=== PATIENT | female | born 1945 | race Caucasian/White ===

== ENCOUNTER 2019-06-27 13:23 | Inpatient (IN) | payer MEDICARE, OTHER ==
[~2019-06-27] VITALS: Ht 165.1 cm; Wt 91.0 kg
[2019-06-27] MEDS ORDERED: heparin 25,000 UNIT/250ml bag 250 ML IV SCH (13:38)
[2019-06-27] MEDS ORDERED: heparin 10,000 units/1 ML INJ IV PRN ×2 (13:40→15:35)
[2019-06-27 14:11] LABS: BASOPHILS # (AUTO) 0.1 X10'3 (0-0.2); BASOPHILS % (AUTO) 1.1 % (0-1); EOSINOPHILS # (AUTO) 0.2 X10'3 (0-0.9); EOSINOPHILS % (AUTO) 2.2 % (0-6); HEMATOCRIT 41.4 % (35.0-45.0); HEMOGLOBIN 14.2 g/dl (12.0-16.0); LYMPHOCYTES # (AUTO) 2.9 X10'3 (1.1-4.8); LYMPHOCYTES % (AUTO) 37.9 % (21-51); MEAN CORPUSCULAR HEMOGLOBIN 32.6 PG (27.0-31.0); MEAN CORPUSCULAR HGB CONC 34.2 g/dL (33.0-36.5); MEAN CORPUSCULAR VOLUME 95.2 FL (78-98); MEAN PLATELET VOLUME 7.7 FL (7.4-10.4); MONOCYTES # (AUTO) 0.7 X10'3 (0-0.9); MONOCYTES % (AUTO) 8.7 % (2-12); NEUTROPHILS # (AUTO) 3.8 X10'3 (1.8-7.7); NEUTROPHILS % (AUTO) 50.1 % (42-75); PLATELET COUNT 294 X10'3 (140-440); RED BLOOD COUNT 4.34 X10'6 (4.20-5.60); WHITE BLOOD COUNT 7.7 X10'3 (4.5-11.0)
[2019-06-27 14:21] LABS: ALANINE AMINOTRANSFERASE 40 U/L (12-78); ALBUMIN 3.7 G/DL (3.4-5.0); ALBUMIN/GLOBULIN RATIO 0.9 (1.1-1.5); ALKALINE PHOSPHATASE 97 IU/L (46-116); ANION GAP 8 (8-16); ASPARTATE AMINO TRANSFERASE 30 U/L (10-37); BILIRUBIN,TOTAL 0.5 MG/DL (0.1-1.0); BLOOD UREA NITROGEN 27 MG/DL (7-18); BUN/CREATININE RATIO 32.5 (6.6-38.0); CALCIUM 10.8 MG/DL (8.5-10.1); CHLORIDE 104 MMOL/L (99-107); CREATININE 0.83 MG/DL (0.40-0.90); GLUCOSE 91 MG/DL (70-104); POTASSIUM 4.5 MMOL/L (3.5-5.1); SODIUM 138 MMOL/L (135-145); TOTAL CARBON DIOXIDE 26.4 MMOL/L (24-32); eGFR 67 ML/MIN
[2019-06-27 14:29] LABS: MAGNESIUM 2.2 MG/DL (1.5-2.4)
[2019-06-27] MEDS ORDERED: DULO20CA50 PO (15:00)
[2019-06-27] MEDS ORDERED: MONT10TA21 PO (15:00)
[2019-06-27] MEDS ORDERED: LEVO75TA PO (15:00)
[2019-06-27] MEDS ORDERED: magnesium 2GM in 50ml NS 50 ML IV PRN (15:35)
[2019-06-27] MEDS ORDERED: potassium Cl 20 mEq SR tablet PO PRN ×2 (15:35)
[2019-06-27] MEDS ORDERED: mag hydrox/Alum hydrox/simeth 30ml oral suspension PO PRN (15:35)
[2019-06-27] MEDS ORDERED: magnesium 4gm in 100ml NS 100 ML IV PRN (15:35)
[2019-06-27] MEDS ORDERED: acetaminophen 325mg tablet PO PRN ×2 (15:35)
[2019-06-27] MEDS ORDERED: magnesium Cl slow-release 64mg tablet PO PRN (15:35)
[2019-06-27] MEDS ORDERED: potassium CL 10mEq/100ml bag 100 ML IV PRN ×2 (15:35)
[2019-06-27] MEDS ORDERED: morphine 2 MG/ML inj. syringe IV PRN (15:35)
[2019-06-27] MEDS ORDERED: ondansetron/PF 4mg/2ml inj IV PRN (15:35)
[2019-06-27] MEDS ORDERED: magnesium hydroxide 30ml (MOM) UD suspension PO PRN (15:35)
[2019-06-27] MEDS ORDERED: HYDROcodone/acetaminophen 5mg/325mg tablet PO PRN (15:35)
[2019-06-27] MEDS ORDERED: pamidronate disodium inj 60 MG in normal saline 500ml IV soln 500 ML IV ONE (16:05)
--- NOTE | 2019-06-27 16:29 | NUR ---
New admit to 3015B received report from TEDDY Baugh in ER. Pt was brought up on [facility]ts and transferred with sba to bed. She is A&O NAD. Heparin infusing @ 1700units/hr . She denies pain. IDART nurse and Dietary were notified of her arrival.
--- NOTE | 2019-06-27 18:15 | NUR ---
Problems reprioritized. Patient report given, questions answered & plan of care reviewed with TEDDY Syed.
[2019-06-27 19:00] VITALS: BP 140/76
[2019-06-27] MEDS: normal saline 1000ml 1,000 ML IV SCH (20:13)
[2019-06-27] MEDS ORDERED: temazepam 15mg capsule PO PRN (21:00)
[2019-06-27 21:55] LABS: PARTIAL THROMBOPLASTIN TIME 61 SECONDS (22-32)
[2019-06-27 23:00] VITALS: BP 126/70
[2019-06-28] MEDS: heparin 25,000 UNIT/250ml bag 250 ML IV SCH ×3 (02:54→17:08)
[2019-06-28 03:00] VITALS: BP 125/76
[2019-06-28 03:27] LABS: ALBUMIN 3.4 G/DL (3.4-5.0); ANION GAP 11 (8-16); BLOOD UREA NITROGEN 23 MG/DL (7-18); BUN/CREATININE RATIO 29.9 (6.6-38.0); CHLORIDE 106 MMOL/L (99-107); CREATININE 0.77 MG/DL (0.40-0.90); GLUCOSE 97 MG/DL (70-104); MAGNESIUM 2.3 MG/DL (1.5-2.4); POTASSIUM 3.9 MMOL/L (3.5-5.1); SODIUM 139 MMOL/L (135-145); TOTAL CARBON DIOXIDE 22.4 MMOL/L (24-32); eGFR 73 ML/MIN
[2019-06-28 04:06] LABS: BASOPHILS # (AUTO) 0.1 X10'3 (0-0.2); BASOPHILS % (AUTO) 1.8 % (0-1); EOSINOPHILS # (AUTO) 0.2 X10'3 (0-0.9); EOSINOPHILS % (AUTO) 3.7 % (0-6); HEMATOCRIT 40.3 % (35.0-45.0); HEMOGLOBIN 13.8 g/dl (12.0-16.0); LYMPHOCYTES # (AUTO) 2.4 X10'3 (1.1-4.8); LYMPHOCYTES % (AUTO) 39.4 % (21-51); MEAN CORPUSCULAR HEMOGLOBIN 32.9 PG (27.0-31.0); MEAN CORPUSCULAR HGB CONC 34.2 g/dL (33.0-36.5); MEAN CORPUSCULAR VOLUME 96.2 FL (78-98); MEAN PLATELET VOLUME 8.3 FL (7.4-10.4); MONOCYTES # (AUTO) 0.7 X10'3 (0-0.9); MONOCYTES % (AUTO) 10.7 % (2-12); NEUTROPHILS # (AUTO) 2.7 X10'3 (1.8-7.7); NEUTROPHILS % (AUTO) 44.4 % (42-75); PLATELET COUNT 270 X10'3 (140-440); RED BLOOD COUNT 4.19 X10'6 (4.20-5.60); RED CELL DISTRIBUTION WIDTH 13.3 % (11.5-14.5); WHITE BLOOD COUNT 6.1 X10'3 (4.5-11.0)
[2019-06-28 06:00] VITALS: BP 159/86
--- NOTE | 2019-06-28 06:16 | NUR ---
Patient in room PCU 3015. I have received report from Kunal ESPINAL and had the opportunity to ask questions and assume patient care.
--- NOTE | 2019-06-28 06:31 | NUR ---
Patient in room PCU 3015. I have received report from Melissa ESPINAL and had the opportunity to ask questions and assume patient care.
[2019-06-28] MEDS: levoTHYROXINE 75mcg tablet PO SCH (07:23)
[2019-06-28] MEDS: montelukast 10mg tablet PO SCH (07:23)
[2019-06-28] MEDS: duloxetine 20mg capsule.DR PO SCH (07:24)
[2019-06-28] MEDS: K and/or MAG REPLACEMENT MC SCH (07:25)
[2019-06-28] MEDS: normal saline 1000ml 1,000 ML IV SCH ×3 (07:35→15:39)
[2019-06-28 11:00] VITALS: BP 154/75
[2019-06-28 15:00] VITALS: BP 152/80
[2019-06-28] MEDS ORDERED: furosemide 40mg/4ml inj IV ONE (15:05)
--- NOTE | 2019-06-28 18:10 | NUR ---
Patient in room PCU 3015b. I have received report from Melissa RN and TEDDY Thomas and had the opportunity to ask questions and assume patient care. Heparin infusing at 1700 units/hr and NS at 125 mL/hr. Patient stable at this time and will continue to monitor closely.
--- NOTE | 2019-06-28 18:18 | NUR ---
[place] documentation: I have reviewed and agree with all interventions, assessments performed and documented by TEDDY Torres. [place] Medication Administration: For this medication-pass time frame, all medication were reviewed, dispensed, administered and documented per hospital policy by TEDDY Torres.
--- NOTE | 2019-06-28 18:24 | NUR ---
Problems reprioritized. Patient report given, questions answered & plan of care reviewed with Mikael ESPINAL.
[2019-06-28 18:30] VITALS: BP 160/86
[2019-06-28 23:00] VITALS: BP 162/73
--- NOTE | 2019-06-28 23:35 | NUR ---
Attempted to contact Dr. Pozo several times by phone and cell phone provided by [facility]. No new orders at this time.
[2019-06-29] MEDS: normal saline 1000ml 1,000 ML IV SCH ×4 (00:14→23:29)
--- NOTE | 2019-06-29 00:29 | NUR ---
PTT 64. Heparin infusing at 1700 units and no change at this time. Will continue to monitor closely.
[2019-06-29 03:00] VITALS: BP 147/79
--- NOTE | 2019-06-29 06:04 | NUR ---
Problems reprioritized. Patient report given, questions answered & plan of care reviewed with TEDDY Ball.
[2019-06-29 06:32] LABS: BASOPHILS # (AUTO) 0.1 X10'3 (0-0.2); BASOPHILS % (AUTO) 1.5 % (0-1); EOSINOPHILS # (AUTO) 0.2 X10'3 (0-0.9); EOSINOPHILS % (AUTO) 3.9 % (0-6); HEMATOCRIT 38.5 % (35.0-45.0); LYMPHOCYTES # (AUTO) 2.2 X10'3 (1.1-4.8); LYMPHOCYTES % (AUTO) 38.8 % (21-51); MEAN CORPUSCULAR HEMOGLOBIN 32.5 PG (27.0-31.0); MEAN CORPUSCULAR HGB CONC 33.8 g/dL (33.0-36.5); MEAN PLATELET VOLUME 8.2 FL (7.4-10.4); MONOCYTES # (AUTO) 0.6 X10'3 (0-0.9); MONOCYTES % (AUTO) 9.9 % (2-12); NEUTROPHILS # (AUTO) 2.6 X10'3 (1.8-7.7); NEUTROPHILS % (AUTO) 45.9 % (42-75); PLATELET COUNT 275 X10'3 (140-440); RED BLOOD COUNT 4.01 X10'6 (4.20-5.60); RED CELL DISTRIBUTION WIDTH 13.2 % (11.5-14.5); WHITE BLOOD COUNT 5.7 X10'3 (4.5-11.0)
[2019-06-29 06:43] LABS: ALANINE AMINOTRANSFERASE 31 U/L (12-78); ALBUMIN 3.3 G/DL (3.4-5.0); ALBUMIN/GLOBULIN RATIO 0.8 (1.1-1.5); ALKALINE PHOSPHATASE 86 IU/L (46-116); ANION GAP 10 (8-16); ASPARTATE AMINO TRANSFERASE 27 U/L (10-37); BILIRUBIN,TOTAL 0.4 MG/DL (0.1-1.0); BLOOD UREA NITROGEN 15 MG/DL (7-18); BUN/CREATININE RATIO 21.1 (6.6-38.0); CALCIUM 8.4 MG/DL (8.5-10.1); CHLORIDE 108 MMOL/L (99-107); CREATININE 0.71 MG/DL (0.40-0.90); GLUCOSE 97 MG/DL (70-104); MAGNESIUM 1.9 MG/DL (1.5-2.4); POTASSIUM 3.6 MMOL/L (3.5-5.1); SODIUM 142 MMOL/L (135-145); TOTAL CARBON DIOXIDE 24.3 MMOL/L (24-32); TOTAL PROTEIN 7.3 G/DL (6.4-8.2); eGFR 80 ML/MIN
[2019-06-29 07:00] VITALS: BP 145/71
--- NOTE | 2019-06-29 07:23 | NUR ---
Patient in room PCU 3015. I have received report from Mikael ESPINAL and had the opportunity to ask questions and assume patient care.
[2019-06-29] MEDS: K and/or MAG REPLACEMENT MC SCH (08:00)
[2019-06-29] MEDS: montelukast 10mg tablet PO SCH (08:02)
[2019-06-29] MEDS: duloxetine 20mg capsule.DR PO SCH (08:02)
[2019-06-29] MEDS: levoTHYROXINE 75mcg tablet PO SCH (08:03)
[2019-06-29] MEDS: heparin 25,000 UNIT/250ml bag 250 ML IV SCH ×2 (08:12→23:31)
[2019-06-29 11:00] VITALS: BP 142/71
--- NOTE | 2019-06-29 11:16 | NUR ---
O2 Sat at rest on room air:_87__% If below 89%: Recovery O2 Sat at rest on __1_LPM:_92__%: via__nasal cannula__ No further documentation is necessary. If O2 Sat did not drop below 89% on room air,ambulate patient on room air. O2 Sat while ambulating on room air:___% Recovery O2 Sat while ambulating on ___LPM:___% No further documentation is necessary. If patient does not drop below 89% while ambulating, he/she does not qualify for home O2.
[2019-06-29 15:00] VITALS: BP 155/74
--- NOTE | 2019-06-29 18:15 | NUR ---
[place] documentation: I have reviewed and agree with interventions, assessments performed and documented by Lizzy ESPINAL. [place] Medication Administration: For this medication-pass time frame, medication were reviewed, dispensed, administered and documented per hospital policy by Lizzy ESPINAL .
--- NOTE | 2019-06-29 18:15 | NUR ---
Problems reprioritized. Patient report given, questions answered & plan of care reviewed with TEDDY Youssef.
--- NOTE | 2019-06-29 18:47 | NUR ---
Patient in room PCU 3015b. I have received report from TEDDY Ball and had the opportunity to ask questions and assume patient care. Patient awake for bedside report. NS infusing at 125 mL/hr and heparin infusing at 1700 units/hr. Patient is stable at this time. Will continue to monitor closely.
--- NOTE | 2019-06-29 18:51 | NUR ---
1753 DVT PTT resulted and within therapeutic range at 70. No change in rate and heparin infusing at 1700 units/hr
[2019-06-29 19:00] VITALS: BP 143/76
[2019-06-29 23:00] VITALS: BP 154/83
--- NOTE | 2019-06-30 00:22 | NUR ---
2353 PTT 67 AND WITHIN THERAPEUTIC RANGE; NO CHANGE IN RATE. HEPARIN INFUSING AT 1700 UNITS PER PROTOCOL AND PROVIDER ORDER. WILL CONTINUE TO MONITOR CLOSELY.
[2019-06-30 03:00] VITALS: BP 160/83
--- NOTE | 2019-06-30 06:24 | NUR ---
Patient in room PCU 3015. I have received report from Mikael ESPINAL and had the opportunity to ask questions and assume patient care. Patient stable at transfer of care. Heparin infusing at 1700units/hr, patient PTT was just obtained. Will continue to monitor.
[2019-06-30 06:44] LABS: BASOPHILS % (AUTO) 0.3 % (0-1); EOSINOPHILS # (AUTO) 0.2 X10'3 (0-0.9); EOSINOPHILS % (AUTO) 3.4 % (0-6); HEMATOCRIT 38.4 % (35.0-45.0); HEMOGLOBIN 13.1 g/dl (12.0-16.0); MEAN CORPUSCULAR HEMOGLOBIN 32.7 PG (27.0-31.0); MEAN PLATELET VOLUME 7.8 FL (7.4-10.4); MONOCYTES # (AUTO) 0.5 X10'3 (0-0.9); MONOCYTES % (AUTO) 9.7 % (2-12); NEUTROPHILS # (AUTO) 2.7 X10'3 (1.8-7.7); NEUTROPHILS % (AUTO) 49.6 % (42-75); PLATELET COUNT 260 X10'3 (140-440); RED CELL DISTRIBUTION WIDTH 13.1 % (11.5-14.5); WHITE BLOOD COUNT 5.4 X10'3 (4.5-11.0)
--- NOTE | 2019-06-30 06:45 | NUR ---
Problems reprioritized. Patient report given, questions answered & plan of care reviewed with TEDDY Ball and TEDDY Goodrich.
[2019-06-30 06:53] LABS: ALBUMIN 3.2 G/DL (3.4-5.0); ANION GAP 9 (8-16); BLOOD UREA NITROGEN 13 MG/DL (7-18); BUN/CREATININE RATIO 17.1 (6.6-38.0); CALCIUM 8.4 MG/DL (8.5-10.1); CHLORIDE 111 MMOL/L (99-107); CREATININE 0.76 MG/DL (0.40-0.90); GLUCOSE 92 MG/DL (70-104); POTASSIUM 4.2 MMOL/L (3.5-5.1); SODIUM 142 MMOL/L (135-145); TOTAL CARBON DIOXIDE 22.3 MMOL/L (24-32); eGFR 74 ML/MIN
[2019-06-30 06:54] VITALS: BP 165/78
[2019-06-30] MEDS: K and/or MAG REPLACEMENT MC SCH (07:58)
[2019-06-30] MEDS: normal saline 1000ml 1,000 ML IV SCH (08:00)
[2019-06-30] MEDS: levoTHYROXINE 75mcg tablet PO SCH (08:02)
[2019-06-30] MEDS: duloxetine 20mg capsule.DR PO SCH (08:02)
[2019-06-30] MEDS: montelukast 10mg tablet PO SCH (08:02)
[2019-06-30] MEDS ORDERED: apixaban 5mg tablet PO SCH (08:45)
[2019-06-30 11:00] VITALS: BP 150/69
[2019-06-30] MEDS ORDERED: APIX5TAB3 PO (11:20)
--- NOTE | 2019-06-30 12:39 | NUR ---
Patient discharged home with family. Patient discharge packet, new medications and instructions were reviewed before signing. All belongings sent home with patient, PIV removed with cannula intact, oxygen was delivered by [facility], telemetry monitoring discontinued, and new Rx called in to [facility] in [place]. Patient was wheeled down by staff and left via private vehicle.
== END 2019-06-30 13:18 | disposition home or self-care (01) | DRG 176 ==
LOC: ER 13:24 → PCU 3S 16:09
PROVIDERS: ADMIT Internal Medicine; ATTEND Family Medicine
DX: I26.99 Other pulmonary embolism without acute cor pulmonale (principal); E83.52 Hypercalcemia; E03.9 Hypothyroidism, unspecified; G71.00 Muscular dystrophy, unspecified
CPT/HCPCS: 36415; 71045; 80048; 80053; 82330; 83735; 83880; 84443; 84484; 85025; 85610; 85730; 87081; 93005; 93306; 96365; 97116; 97161; 97530; 99285; G0378; J1644; J1940; J2430; J7030; J7040